=== PATIENT | male | born 1995 | race Asian ===

== ENCOUNTER 2017-05-03 01:38 | Emergency (ER) | payer OTHER ==
[~2017-05-03] VITALS: Ht 180.3 cm; Wt 58.0 kg
[2017-05-03 01:44] VITALS: TEMP 36.9; Ht 180.3 cm; Wt 58.0 kg
--- NOTE | 2017-05-03 02:32 | EMERGENCY ROOM VISIT NOTE ---
History First contact with patient: 01:57 Chief Complaint: FALL Stated Complaint: FALL,WINTERS,NAUSEA,CONFUSION,BLURRY VISION History of Present Illness The patient is a 21 year old male who presents to the Emergency Room with complaints of falling on the ice approx 1 hour ago and hit his head and lost consciousness. Describes walking across an unsalted parking lot to the gas station, slipped on ice, and next thing he knew he was looking up at the iza. Began to get up but fell again because of dizziness. Denies bleeding anywhere. Reports waxing waning headache and left elbow pain. Went home, vomited x1. Called his dad and father urged him to get medical attention. Review of Systems See HPI for pertinent positives and negatives. Social History Smoking Status: Current Every Day Smoker Current/Historical Medications No Active Prescriptions or Reported Meds Physical Exam Vital Signs Date Time Temp Pulse Resp B/P (MAP) Pulse Ox O2 Delivery O2 Flow Rate FiO2 05/03/17 01:44 36.9 106 18 142/79 98 Room Air Physical Exam GENERAL: Awake, alert, well-appearing, in no distress HENT: Normocephalic, atraumatic. Oropharynx unremarkable. Tenderness to palpation over occipital area. EYES: Normal conjunctiva. Sclera non-icteric. NECK: Supple. FROM. No JVD. RESPIRATORY: Clear to auscultation. CARDIAC: Regular rate, normal rhythm. Extremities warm and well perfused. Pulses equal. ABDOMEN: Soft, non-distended. Mild tenderness to palpation. No rebound or guarding. No masses. RECTAL: Deferred. MUSCULOSKELETAL: Chest examination reveals no tenderness. The back is symmetrical on inspection without obvious abnormality. No joint edema. Contusion visualized on anteromedial left elbow. LOWER EXTREMITIES: Calves are equal size bilaterally and non-tender. No edema. No discoloration. NEURO: Normal sensorium. No sensory or motor deficits noted. Neurologically in tact. SKIN: No rash or jaundice noted. Medical Decision & Procedures Medications Administered Medications (Trade) Dose Ordered Sig/Ira Route Start Time Stop Time Status Last Admin Dose Admin Ondansetron HCl (Zofran Odt) 4 mg NOW STAT PO 05/03/17 02:52 05/03/17 02:53 DC 05/03/17 02:52 4 MG ED Course 0200 sign up, reviewed records, assessed pt [address] head w/o contrast, XR of LT elbow. 0254 pt refuses elbow XR. CT head done. Pt reports emesis - ordered 4mg zofran ODT. 1530 pt improved on zofran. CT reviewed - normal. D/w pt. Stable for discharge. Medical Decision The patient is a 21 year old male who presents to the Emergency Room with complaints of falling on the ice approx 1 hour ago and hit his head and lost consciousness. Describes walking across an unsalted parking lot to the gas station, slipped on ice, and next thing he knew he was looking up at the [place]. Began to get up but fell again because of dizziness. Denies bleeding anywhere. Reports waxing waning headache and left elbow pain. Went home, vomited x1. Called his dad and father urged him to get medical attention. DDX: head contusion, subdural hematoma, epidural hematoma, skull fracture Pt declined XR of elbow. states he doesn't think it necessary. Has intermittent nausea with emesis, improved on Zofran. Will send home pack. CT of head is normal. D/w pt results of his imaging, and discharge instructions including rest , hydration, avoiding re-injuring his head. Also discussed pain control with ibuprofen/tylenol. Pt verbalized understanding, answered all questions. Stable for discharge. Impression Primary Impression: Concussion Additional Impressions: Head injury, closed Elbow contusion Departure Information Dispostion Home / Self-Care Condition GOOD Prescriptions No Active Prescriptions or Reported Meds Referrals No Doctor, Assigned (PCP) Patient Instructions My [facility] Additional Instructions You have a concussion. Your CT scan of your head is normal, so there is no need to be awakened every hour. In fact, be sure to rest, and stay hydrated. It's important to avoid another head injury. For nausea we are giving you zofran. Please use as directed. Please avoid alcohol or other stimulants. Please use tylenol and/or ibuprofen for your headache. We also recommend you see your primary care physician for follow up in the next few days. Resident Tracking Resident Involvement: Resident Care Provided Care Provided: Adult ED Problem Qualifiers
[2017-05-03] MEDS ORDERED: ONDANSETRON 4MG OD TAB PO STA (02:52)
--- NOTE | 2017-05-03 03:04 | EMERGENCY ROOM VISIT NOTE ---
History Report prepared by Brian: Everardo Ford Under the Supervision of: Dr. Truong Gómez M.D. First contact with patient: 01:56 Chief Complaint: FALL Stated Complaint: FALL,WINTERS,NAUSEA,CONFUSION,BLURRY VISION History of Present Illness The patient is a 21 year old male who presents to the Emergency Room with complaints of a fall that occurred 1 hour ago. Patient states that he slipped on ice and hit his head. He states that he tried to get up from the fall but became dizzy and fell again. Patient states that he had a state of confusion and why he was walking outside after the second fall. Patient has associated symptoms of a waxing and waning headache. Patient states the headache is located in the frontal and occipital area. Patients adds that he has left elbow pain, loss of consciousness, and vomiting. Patient denies any areas of bleeding. Source of History: patient Onset: 1 hour ago Position: head Associated Symptoms: + LOC, + headache, + vomiting Note: Patient has left elbow pain and dizziness. Review of Systems See HPI for pertinent positives & negatives. A total of 10 systems reviewed and were otherwise negative. Past Medical & Surgical No pertinent past medical and surgical history. Family History No pertinent family history. Social History Smoking Status: Current Every Day Smoker Current/Historical Medications No Active Prescriptions or Reported Meds Allergies Coded Allergies: No Known Allergies (Unverified , 05/03/17) Physical Exam Vital Signs Date Time Temp Pulse Resp B/P (MAP) Pulse Ox O2 Delivery O2 Flow Rate FiO2 05/03/17 04:01 72 17 102/66 99 05/03/17 01:44 36.9 106 18 142/79 98 Room Air Physical Exam GENERAL: Patient is well appearing and in mild distress. HEENT: No acute trauma, tenderness of left posterior scalp, large nontender occiput, mucous membranes moist, no nasal congestion, no scleral icterus. NECK: No stridor, no adenopathy, no meningismus, trachea is midline. LUNGS: No dyspnea. Clear to auscultation and equal bilaterally. No wheeze, no rhonchi. HEART: Regular rate and rhythm. No murmurs, rubs, gallops appreciated. ABDOMEN: Soft, nontender, bowel sounds positive, no masses appreciated, no peritonitis. BACK: No midline tenderness, no CVA tenderness EXTREMITIES: Normal motion all extremities, no cyanosis, no edema, mild bruise over the left proximal forearm olecranon, mild tenderness to left lower posterior neck, no midline tenderness. NEUROLOGIC: Alert and oriented, no acute motor or sensory deficits, no focal weakness, cranial nerves grossly intact. SKIN: No rash, no jaundice, no diaphoresis. Medical Decision & Procedures ER Provider Diagnostic Interpretation: Radiology results and stated below per my review and radiologist interpretation: Head CT: negative per [facility]. Medications Administered Medications (Trade) Dose Ordered Sig/Ira Route Start Time Stop Time Status Last Admin Dose Admin Ondansetron HCl (Zofran Odt) 4 mg NOW STAT PO 05/03/17 02:52 05/03/17 02:53 DC 05/03/17 02:52 4 MG Ondansetron HCl (ZOFRAN ODT 4MG Home Pack) 1 homepack UD ONCE PO 05/03/17 03:45 05/03/17 03:46 DC 05/03/17 03:45 1 HOMEPACK ED Course 0200: The patient was evaluated in room B5. A complete history and physical exam was performed. 0245: Patient is sleeping. 0252: Zofran 4mg PO 0345: Ondansetron HCl 1 homepack PO 0356: Reevaluated the patient. Discussed results and discharge instructions. He verbalized understanding and agreement. The patient is ready for discharge. Medical Decision 21 yr old male with mechanical fall resulting in posterior head injury. With vomiting and possible LOC felt imaging reasonable with negative CT Head fortunately. No midline neck TTP posterior and no neuro deficits thus I feel CT Neck not indicated. Declined imaging of elbow. Advised follow up with [facility] if headaches/symptoms persistent. Head Trauma GCS Score: 15 Medication Reconcilliation Current Medication List: was personally reviewed by me Blood Pressure Screening Patient's blood pressure: Normal blood pressure Blood pressure disposition: Did not require urgent referral Impression Primary Impression: Head injury, closed, with brief LOC Scribe Attestation The scribe's documentation has been prepared under my direction and personally reviewed by me in its entirety. I confirm that the note above accurately reflects all work, treatment, procedures, and medical decision making performed by me. Departure Information Prescriptions No Active Prescriptions or Reported Meds Referrals No Doctor, Assigned (PCP) Patient Instructions My [facility]
[2017-05-03] MEDS ORDERED: ONDANSETRON HOME PACK 4MG OD TAB PO ONE (03:45)
[2017-05-03 04:01] VITALS: BP 102/66; PULSE 72; O2SAT 99
--- NOTE | 2017-05-03 09:07 | DIAGNOSTIC IMAGING REPORT ---
HEAD WITHOUT CONTRAST (CT) CLINICAL HISTORY: 21 years-old Male presenting with head contusion, blurry vision, nausea, headache, posterior head injury. TECHNIQUE: Multidetector CT imaging of the head was performed without the use of intravenous contrast. IV contrast: None. A dose lowering technique was used consistent with the principles of ALARA (as low as reasonably achievable). COMPARISON: None. CT DOSE (mGy.cm): The estimated cumulative dose is 537.48 mGy.cm. FINDINGS: Test Manager topogram: Unremarkable. Ventricles and sulci normal in size. Brain parenchyma normal in appearance with preserved celaya-white differentiation. No mass effect or midline shift. No hemorrhage or acute territorial infarct. No extra-axial fluid collection. Paranasal sinuses and mastoid air cells clear. Calvarium intact. IMPRESSION: 1. No acute intracranial abnormality. Electronically signed by: Greg Mireles M.D. 05/03/2017 9:06 AM Dictated Date/Time: 05/03/2017 9:05 AM
== END 2017-05-03 04:00 | disposition home or self-care (01) ==
LOC: C.EDB 01:41
DX: S06.9X9A Unspecified intracranial injury with loss of consciousness of unspecified duration, initial encounter (principal); R51 Headache; H53.8 Other visual disturbances; R11.10 Vomiting, unspecified; M25.522 Pain in left elbow; W00.0XXA Fall on same level due to ice and snow, initial encounter; Y92.480 Sidewalk as the place of occurrence of the external cause; F17.210 Nicotine dependence, cigarettes, uncomplicated